=== PATIENT | female | born 1970 | race African-American/Black ===

== ENCOUNTER 2016-12-26 20:58 | Inpatient (IN) | payer SELFPAY ==
[~2016-12-26] VITALS: Ht 171.4 cm; Wt 100.2 kg
[2016-12-26 21:06] VITALS: BP 159/84; PULSE 81; RESP 20; O2SAT 96
[2016-12-26] MEDS ORDERED: [UNRECOGNIZED DRUG - OTHER] PO (21:25)
[2016-12-26] MEDS ORDERED: ONDANSETRON HCL 4 MG/2 ML VIAL IV PUSH ONE (21:30)
[2016-12-26] MEDS ORDERED: MORPHINE SULFATE 4 MG/ML INJ IV PUSH ONE (21:30)
--- NOTE | 2016-12-26 21:31 | PD ---
HPI Chief Complaint: Cardiac Complaint Time Seen by Provider: 21:26 Travel History International Travel<30 days: No Contact w/Intl Traveler<30days: No Traveled to known affect area: No History of Present Illness HPI 46-year-old female that presents to the ED via E back for evaluation of chest pain and headache. Patient developed this chest pain and headache will eating at [employer]. Patient states that she was using some wings as well as a "hurricane" drink and apparently she went to the bathroom and her boyfriend got concerned because she stated the bathroom for a while and when they found her she was complaining of severe chest pain and headache. Ambulance was called and brought her here. Patient reports that he started with the chest pain. Per patient he feels like a pressure. Headache also feels like a pressure. Per patient she's had a history of hypertension in the past. She has no history of heart disease. She denies any stent placement. She has any nausea or vomiting. No abdominal pain. She does have an allergy to shellfish but denies being in contact with any shellfish. She states that the headache feels like a pressure and she was given nitroglycerin which made the headache worse. Per patient she was given aspirin. She states that her pain currently is 10 out of 10 especially on the chest. No recent injury. No abdominal pain. No nausea or vomiting. PFSH Past Medical History Medical History: Denies Significant Hx Social History Alcohol Use: Yes Tobacco Use: No Substance Use: No Allergies-Medications (Allergen,Severity, Reaction): Coded Allergies: PEANUTS (Verified Allergy, Severe, swelling, 12/26/16) Shellfish (Verified Allergy, Severe, swelling, 12/26/16) Reported Meds & Prescriptions Reported Meds & Active Scripts Active Reported [blood press] 1 Tab PO DAILY Review of Systems Except as stated in HPI: all other systems reviewed are Neg Physical Exam Narrative GENERAL: SKIN: Warm and dry. HEAD: Atraumatic. Normocephalic. EYES: Pupils equal and round 4 mm reactive to light and accommodation. No scleral icterus. No injection or drainage. ENT: No nasal bleeding or discharge. Mucous membranes pink and moist. Tongue is midline. No uvula deviation. NECK: Trachea midline. No JVD. CARDIOVASCULAR: Regular rate and rhythm. No murmurs, S3, S4. RESPIRATORY: No accessory muscle use. Clear to auscultation. Breath sounds equal bilaterally. GASTROINTESTINAL: Abdomen soft, non-tender, nondistended. Hepatic and splenic margins not palpable. MUSCULOSKELETAL: Extremities without clubbing, cyanosis, or edema. No obvious deformities. Full range of motion of the upper and lower extremities bilaterally. 2+ pulses bilaterally. NEUROLOGICAL: Awake and alert. No obvious cranial nerve deficits. Motor grossly within normal limits. Five out of 5 muscle strength in the arms and legs. Normal speech. PSYCHIATRIC: Appropriate mood and affect; insight and judgment normal. Data Data Last Documented VS Vital Signs Date Time Temp Pulse Resp B/P Pulse Ox O2 Delivery O2 Flow Rate FiO2 12/26/16 21:49 97.9 94 18 170/100 100 Room Air Orders Electrocardiogram (12/26/16 21:07) Complete Blood Count With Diff (12/26/16 21:07) Basic Metabolic Panel (Bmp) (12/26/16 21:07) Ckmb (Isoenzyme) Profile (12/26/16 21:07) Troponin I (12/26/16 21:07) Prothrombin Time / Inr (Pt) (12/26/16 21:07) Act Partial Throm Time (Ptt) (12/26/16 21:07) Lipase (12/26/16 21:07) Urinalysis - C+S If Indicated (12/26/16 21:07) Magnesium (Mg) (12/26/16 21:07) Thyroid Stimulating Hormone (12/26/16 21:07) Chest, Single Ap (12/26/16 21:07) Ct Brain W/O Iv Contrast(Rout) (12/26/16 21:07) Iv Access Insert/Monitor (12/26/16 21:07) Ecg Monitoring (12/26/16 21:07) Oximetry (12/26/16 21:07) Ed Urine Pregnancytest Poc (12/26/16 21:07) Morphine Inj (Morphine Inj) (12/26/16 21:30) Ondansetron Inj (Zofran Inj) (12/26/16 21:30) Urine Culture (12/26/16 21:30) CKMB (12/26/16 21:10) CKMB% (12/26/16 21:10) Sodium Chlor 0.9% 1000 Ml Inj (Ns 1000 M (12/26/16 22:09) Hepatic Functional Panel (12/26/16 22:09) Labs Laboratory Tests Test 12/26/16 12/26/16 21:10 21:30 White Blood Count 10.8 TH/MM3 Red Blood Count 4.98 MIL/MM3 Hemoglobin 13.6 GM/DL Hematocrit 41.5 % Mean Corpuscular Volume 83.3 FL Mean Corpuscular Hemoglobin 27.3 PG Mean Corpuscular Hemoglobin 32.7 % Concent Red Cell Distribution Width 13.9 % Platelet Count 169 TH/MM3 Mean Platelet Volume 9.9 FL Neutrophils (%) (Auto) 80.1 % Lymphocytes (%) (Auto) 13.6 % Monocytes (%) (Auto) 5.6 % Eosinophils (%) (Auto) 0.3 % Basophils (%) (Auto) 0.4 % Neutrophils # (Auto) 8.7 TH/MM3 Lymphocytes # (Auto) 1.5 TH/MM3 Monocytes # (Auto) 0.6 TH/MM3 Eosinophils # (Auto) 0.0 TH/MM3 Basophils # (Auto) 0.0 TH/MM3 CBC Comment DIFF FINAL Differential Comment Prothrombin Time 11.6 SEC Prothromb Time International 1.0 RATIO Ratio Activated Partial 24.1 SEC Thromboplast Time Sodium Level 139 MEQ/L Potassium Level 3.5 MEQ/L Chloride Level 107 MEQ/L Carbon Dioxide Level 26.5 MEQ/L Anion Gap 6 MEQ/L Blood Urea Nitrogen 15 MG/DL Creatinine 0.84 MG/DL Estimat Glomerular Filtration 88 ML/MIN Rate Random Glucose 98 MG/DL Calcium Level 9.1 MG/DL Magnesium Level 2.1 MG/DL Total Creatine Kinase 206 U/L Creatine Kinase MB 2.5 NG/ML Creatine Kinase MB % 1.2 % Troponin I LESS THAN 0.02 NG/ML Lipase 1498 U/L Thyroid Stimulating Hormone 0.646 uIU/ML 3rd Gen Urine Color LIGHT-YELLOW Urine Turbidity HAZY Urine pH 6.5 Urine Specific [place] 1.008 Urine Protein NEG mg/dL Urine Glucose (UA) NEG mg/dL Urine Ketones NEG mg/dL Urine Occult Blood NEG Urine Nitrite NEG Urine Bilirubin NEG Urine Urobilinogen LESS THAN 2.0 MG/DL Urine Leukocyte Esterase SMALL Urine RBC 1 /hpf Urine WBC 3 /hpf Urine Squamous Epithelial 5 /hpf Cells Urine Bacteria MANY /hpf Urine Mucus FEW /lpf Microscopic Urinalysis Comment CULTURE INDICATED MDM Medical Decision Making Medical Screen Exam Complete: Yes Emergency Medical Condition: Yes Medical Record Reviewed: Yes Interpretation(s) Last Impressions Chest X-Ray 12/26/162106 Signed Impressions: Service Date/Time: Monday, December 26, 2016 21:19 - CONCLUSION: No acute disease. Dhaval Blair MD CBC & BMP Diagram 12/26/16 21:10 EKG shows sinus rhythm with no sign of acute ischemia or arrhythmia read by me and attending. Troponin and CKMB negative Lipase of 1400s Differential Diagnosis Chest pain versus ACS versus anxiety versus pneumothorax versus pneumonia versus headache versus cephalgia versus tension headache versus migraine headache versus ICH Narrative Course 46-year-old female that presents to the ED for evaluation of chest pain and headache. Patient was properly examined and was found to have signs and symptoms of unclear etiology at this time. Definite concerning for ACS. She was initially hypertensive per ambulance and was given nitroglycerin with some relief of the chest pressure but worsening of the headache. Her blood pressure taken down but she apparently climbed second nitroglycerin. She was given aspirin already. Labs and imaging were ordered. Patient was given IV pain medication and Zofran. Labs and imaging showed what appears to be acute pancreatitis. No sign of acute disease. Patient was reassured. Accommodation is for admission for IV fluids and pain relief. Patient agrees with this plan. Patient will be admitted to the hospital. Dr. Malin agrees to admission. Diagnosis Primary Impression: Pancreatitis, acute Qualified Code: K85.20 - Alcohol-induced acute pancreatitis, unspecified complication status Admitting Information Admitting Physician Requests: Admit Alexander Rodriguez Dec 26, 2016 21:31
[2016-12-26 21:39] LABS: AUTOMATED NEUTROPHIL # 8.7 TH/MM3 (1.8-7.7); BASOPHIL % 0.4 % (0.0-2.0); EOSINOPHIL % 0.3 % (0.0-4.0); HEMATOCRIT 41.5 % (35.0-46.0); HEMO FLAGS DIFF FINAL; LYMPH % 13.6 % (9.0-44.0); LYMPHOCYTE # 1.5 TH/MM3 (1.0-4.8); MEAN CELL VOLUME 83.3 FL (80.0-100.0); MEAN CORPUSCULAR HEMOGLOBIN 27.3 PG (27.0-34.0); MEAN CORPUSCULAR HGB CONC 32.7 % (32.0-36.0); MONO % 5.6 % (0.0-8.0); NEUT % 80.1 % (16.0-70.0); PLATELET COUNT 169 TH/MM3 (150-450); RED BLOOD COUNT 4.98 MIL/MM3 (4.00-5.30); RED CELL DISTRIBUTION WIDTH 13.9 % (11.6-17.2); WHITE BLOOD COUNT 10.8 TH/MM3 (4.0-11.0)
--- NOTE | 2016-12-26 21:39 | RADRPT ---
EXAM DATE/TIME: 12/26/2016 21:19 [facility] COMPARISON: No previous studies available for comparison. INDICATIONS : Chest pains and shortness of breath. MEDICAL HISTORY : Asthma. SURGICAL HISTORY : None. ENCOUNTER: Initial ACUITY: 2 days PAIN SCORE: 6/10 LOCATION: Right chest FINDINGS: A single view of the chest demonstrates the lungs to be symmetrically aerated without evidence of mas s, infiltrate or effusion. The cardiomediastinal contours are unremarkable. Osseous structures are intact. CONCLUSION: No acute disease. Dhaval Blair MD on December 26, 2016 at 21:38 Board Certified Radiologist. This report was verified electronically.
[2016-12-26 21:45] LABS: APTT (PATIENT) 24.1 SEC (24.3-30.1); PROTHROMBIN TIME - PATIENT 11.6 SEC (9.8-11.6)
[2016-12-26 21:49] VITALS: BP 170/100; PULSE 94; RESP 18; TEMP 97.9; O2SAT 100
[2016-12-26 21:51] LABS: ANION GAP 6 MEQ/L (5-15); BICARBONATE 26.5 MEQ/L (21.0-32.0); BLOOD UREA NITROGEN 15 MG/DL (7-18); CHLORIDE 107 MEQ/L (98-107); GLOMERULAR FILTRATION RATE 88 ML/MIN (>89); MAGNESIUM 2.1 MG/DL (1.5-2.5); POTASSIUM 3.5 MEQ/L (3.5-5.1); SODIUM (NA) 139 MEQ/L (136-145)
[2016-12-26 21:58] LABS: BACTERIA, URINE MANY /hpf; BLOOD, URINE NEG (NEG); COMMENT (UR) CULTURE INDICATED; CULTURE IF INDICATED CULTURE INDICATED; GLUCOSE,URINE NEG (NEG); KETONE, URINE NEG (NEG); MUCUS URINE FEW /lpf (OCC); NITRITE,URINE NEG (NEG); PH, URINE 6.5 (5.0-8.5); SQUAMOUS EPITHELIAL CELL URINE 5 /hpf (0-5); URINE COLOR LIGHT-YELLOW (YELLW/STRAW)
[2016-12-26 22:02] LABS: CREATINE KINASE 206 U/L (26-192)
[2016-12-26] MEDS ORDERED: SODIUM CHLOR 0.9% 1000 ML INJ 1,000 ML IV SCH (22:09)
[2016-12-26 22:15] LABS: CKMB 2.5 NG/ML (0.5-3.6)
--- NOTE | 2016-12-26 22:43 | RADRPT ---
EXAM DATE/TIME: 12/26/2016 22:33 [facility] COMPARISON: No previous studies available for comparison. INDICATIONS : Cephalgia. RADIATION DOSE: 34.35 CTDIvol (mGy) MEDICAL HISTORY : None SURGICAL HISTORY : None. ENCOUNTER: Initial ACUITY: 1 day PAIN SCALE: 10/10 LOCATION: cranial TECHNIQUE: Multiple contiguous axial images were obtained of the head. Using automated exposure control and adj ustment of the mA and/or kV according to patient size, radiation dose was kept as low as reasonably a chievable to obtain optimal diagnostic quality images. DICOM format image data is available electro nically for review and comparison. FINDINGS: CEREBRUM: The ventricles are normal for age. No evidence of midline shift, mass lesion, hemorrhage or acute in farction. No extra-axial fluid collections are seen. POSTERIOR FOSSA: The cerebellum and brainstem are intact. The 4th ventricle is midline. The cerebellopontine angle i s unremarkable. EXTRACRANIAL: The visualized portion of the orbits is intact. SKULL: The calvaria is intact. No evidence of skull fracture. CONCLUSION: Normal examination. Dhaval Blair MD on December 26, 2016 at 22:41 Board Certified Radiologist. This report was verified electronically.
--- NOTE | 2016-12-26 23:08 | HHI.HP ---
[facility] No Primary Care Physician Admission Diagnosis acute pancreatitis Diagnoses: (1) Pancreatitis Diagnosis: Principal (2) Migraine Diagnosis: Principal (3) HTN (hypertension) Diagnosis: Principal (4) UTI (urinary tract infection) Diagnosis: Principal Travel History International Travel<30 Days: No Contact w/Intl Traveler <30 Da: No Traveled to Known Affected Are: No History of Present Illness This is a 46-year-old female with a PMH of Migraine who was brought to the ER by EMS secondary to complaints of severe headache and epigastric pain starting earlier tonight. Pt states she was at [employer] having dinner w/ , got up to go to bathroom and had acute onset of headache w/ epigastric/chest pain at which time EMS was called. Denies fever, chills, cough or SOB. On arrival, BP 159/84, HR 81, O2 sat 96% on RA, Afebrile. CBC essentially unremarkable except for elevated neutrophil count. Chemistry unremarkable. CPK 206. Troponin negative. Lipase 1498. INR 1.0. UA with small LE, mild bacteriuria. CXR with no acute findings. CT Head negative. Patient currently with +photophobia, intractable migraine which she reports is typical of her previous episodes. S/p analgesics/antiemetics w/ mild improvement. Review of Systems Except as stated in HPI: all other systems reviewed are Neg ROS: 14 point review of systems otherwise negative. Past Family Social History Past Medical History PMH: Migraine Past Surgical History PAST SURGICAL HISTORY: Cholecystectomy, Hysterectomy Allergies: Coded Allergies: PEANUTS (Verified Allergy, Severe, swelling, 12/26/16) Shellfish (Verified Allergy, Severe, swelling, 12/26/16) Family History PAST FAMILY HISTORY: Reviewed. No h/o DM or CAD Social History PAST SOCIAL HISTORY: Occasional alcohol. Negative for tobacco or drugs. Physical Exam Vital Signs Vital Signs Date Time Temp Pulse Resp B/P Pulse Ox O2 Delivery O2 Flow Rate FiO2 12/26/16 21:49 97.9 94 18 170/100 100 Room Air 12/26/16 21:06 81 20 159/84 96 Physical Exam PE: GENERAL: Middle-aged white female in no acute distress, lying in dark room, towel covering her eyes, +photophobia. HEENT: PERRLA, EOMI. No scleral icterus or conjunctival pallor. No lid lag or facial droop. CARDIOVASCULAR: Regular rate and rhythm. No obvious murmurs to auscultation. No chest tenderness to palpation. RESPIRATORY: No obvious rhonchi or wheezing. Clear to auscultation. Breath sounds equal bilaterally. GASTROINTESTINAL: Abdomen soft, mild epigastric tenderness to palpation, nondistended. BS normal. MUSCULOSKELETAL: Extremities without clubbing, cyanosis, or edema. No obvious deformities. NEUROLOGICAL: Awake, alert and oriented x4. No focal neurologic deficits. Moving both upper and lower extremities spontaneously. Laboratory Laboratory Tests Test 12/26/16 12/26/16 21:10 21:30 White Blood Count 10.8 Red Blood Count 4.98 Hemoglobin 13.6 Hematocrit 41.5 Mean Corpuscular Volume 83.3 Mean Corpuscular Hemoglobin 27.3 Mean Corpuscular Hemoglobin 32.7 Concent Red Cell Distribution Width 13.9 Platelet Count 169 Mean Platelet Volume 9.9 Neutrophils (%) (Auto) 80.1 Lymphocytes (%) (Auto) 13.6 Monocytes (%) (Auto) 5.6 Eosinophils (%) (Auto) 0.3 Basophils (%) (Auto) 0.4 Neutrophils # (Auto) 8.7 Lymphocytes # (Auto) 1.5 Monocytes # (Auto) 0.6 Eosinophils # (Auto) 0.0 Basophils # (Auto) 0.0 CBC Comment DIFF FINAL Differential Comment Prothrombin Time 11.6 Prothromb Time International 1.0 Ratio Activated Partial 24.1 Thromboplast Time Sodium Level 139 Potassium Level 3.5 Chloride Level 107 Carbon Dioxide Level 26.5 Anion Gap 6 Blood Urea Nitrogen 15 Creatinine 0.84 Estimat Glomerular Filtration 88 Rate Random Glucose 98 Calcium Level 9.1 Magnesium Level 2.1 Total Creatine Kinase 206 Creatine Kinase MB 2.5 Creatine Kinase MB % 1.2 Troponin I LESS THAN 0.02 Lipase 1498 Thyroid Stimulating Hormone 0.646 3rd Gen Urine Color LIGHT-YELLOW Urine Turbidity HAZY Urine pH 6.5 Urine Specific [place] 1.008 Urine Protein NEG Urine Glucose (UA) NEG Urine Ketones NEG Urine Occult Blood NEG Urine Nitrite NEG Urine Bilirubin NEG Urine Urobilinogen LESS THAN 2.0 Urine Leukocyte Esterase SMALL Urine RBC 1 Urine WBC 3 Urine Squamous Epithelial 5 Cells Urine Bacteria MANY Urine Mucus FEW Microscopic Urinalysis Comment CULTURE INDICATED Date/Time Procedure Status Source Growth 12/26/16 21:30 Urine Culture Worksheet Urine Random Urine Pending Result Diagram: 12/26/16210912/26/162109 Assessment and Plan Problem List: (1) Pancreatitis ICD Code: K85.90 Status: Acute (2) Migraine ICD Code: G43.909 Status: Acute (3) HTN (hypertension) ICD Code: I10 Status: Acute (4) UTI (urinary tract infection) ICD Code: N39.0 Status: Acute Assessment and Plan A/P: 1. Pancreatitis: Acute. Lipase 1498, no h/o Pancreatitis in the past. LFTs normal. Protonix IV, analgesics/antiemetics as needed, Clear Liquid, advance diet as tolerated. IVF for hydration. 2. Migraine: h/o Migraine, initially Tension Headache earlier today, now progressed to Migraine. Compazine/Benadryl prn. CT Head w/ no acute findings, images reviewed by me. 3. HTN: BP 150-160's on arrival, likely compounded by pain complaints, no h/o HTN. Optimize pain control, monitor BP, antihypertensives as needed. 4. UTI: U/a w/ small LE, mild bacteriuria, Cipro IV, IVF for hydration. 5. DVT Prophylaxis: SCD/Teds. 6. Social work for d/c planning as needed. 7. Case discussed w/ ER physician at length. Physician Certification 2 Midnight Certification Type: Admission for Inpatient Services Order for Inpatient Services The services are ordered in accordance with Medicare regulations or non- Medicare payer requirements, as applicable. In the case of services not specified as inpatient-only, they are appropriately provided as inpatient services in accordance with the 2-midnight benchmark. Estimated LOS (days): 2 days is the estimated time the patient will need to remain in the hospital, assuming treatment plan goals are met and no additional complications. Post-Hospital Plan: Not yet determined Blanca Malin MD Dec 26, 2016 23:08
[2016-12-26] MEDS ORDERED: ONDANSETRON HCL 4 MG/2 ML VIAL IVP PRN (23:15)
[2016-12-26] MEDS ORDERED: LACTULOSE SYRUP 20 GM/30 ML CUP PO PRN (23:15)
[2016-12-26] MEDS ORDERED: BISACODYL 10 MG SUPP RECTAL PRN (23:15)
[2016-12-26] MEDS ORDERED: diphenhydrAMINE HCL 50 MG/ML VIAL IV PUSH PRN (23:15)
[2016-12-26] MEDS ORDERED: PROCHLORPERAZINE INJ 10 MG/2 ML VIAL IV PUSH PRN (23:15)
[2016-12-26] MEDS ORDERED: SODIUM CHLORIDE 0.9% FLUSH 10 ML FLUSH IV FLUSH PRN (23:15)
[2016-12-26] MEDS ORDERED: MAGNESIUM HYDROXIDE SUSP 30 ML CUP PO PRN (23:15)
[2016-12-26] MEDS ORDERED: SENNOSIDES 8.6 MG TAB PO PRN (23:15)
[2016-12-26] MEDS ORDERED: ACETAMINOPHEN 325 MG TAB PO PRN (23:15)
[2016-12-26] MEDS: SODIUM CHLOR 0.9% 1000 ML INJ 1,000 ML IV SCH (23:37)
[2016-12-26 23:46] VITALS: BP 166/79; PULSE 89; RESP 16; O2SAT 96
[2016-12-27] MEDS ORDERED: PANTOPRAZOLE SODIUM 40 MG VIAL IV PUSH SCH
[2016-12-27 00:10] VITALS: BP 165/93; PULSE 82; RESP 17; TEMP 97.3; O2SAT 96
[2016-12-27] MEDS: ACETAMINOPHEN/HYDROcodone 325 MG/5 MG TAB PO PRN ×4 (00:37→20:39)
[2016-12-27 01:11] LABS: INDIRECT BILIRUBIN 0.4 MG/DL (0.0-0.8); TOTAL BILIRUBIN ADULT 0.5 MG/DL (0.2-1.0)
[2016-12-27] MEDS ORDERED: CIPROFLOXACIN 400 MG PREMIX 200 ML IV SCH (01:25)
[2016-12-27 03:30] VITALS: BP 122/63; PULSE 64; RESP 16; TEMP 97; O2SAT 99
[2016-12-27 07:46] LABS: AUTOMATED NEUTROPHIL # 5.3 TH/MM3 (1.8-7.7); BASOPHIL % 0.4 % (0.0-2.0); EOSINOPHIL # 0.2 TH/MM3 (0-0.4); EOSINOPHIL % 1.9 % (0.0-4.0); HEMATOCRIT 39.7 % (35.0-46.0); HEMO FLAGS DIFF FINAL; LYMPH % 36.1 % (9.0-44.0); LYMPHOCYTE # 3.5 TH/MM3 (1.0-4.8); MEAN CELL VOLUME 83.5 FL (80.0-100.0); MEAN CORPUSCULAR HEMOGLOBIN 27.6 PG (27.0-34.0); MEAN CORPUSCULAR HGB CONC 33.1 % (32.0-36.0); MONO % 7.2 % (0.0-8.0); NEUT % 54.4 % (16.0-70.0); PLATELET COUNT 170 TH/MM3 (150-450); RED BLOOD COUNT 4.76 MIL/MM3 (4.00-5.30); RED CELL DISTRIBUTION WIDTH 14.2 % (11.6-17.2); WHITE BLOOD COUNT 9.7 TH/MM3 (4.0-11.0)
[2016-12-27 08:00] VITALS: BP 134/78; PULSE 69; RESP 18; TEMP 97.2; O2SAT 100
[2016-12-27 08:46] LABS: ALKALINE PHOSPHATASE 55 U/L (45-117); ALT (GPT) 50 U/L (10-53); ANION GAP 6 MEQ/L (5-15); AST (GOT) 45 U/L (15-37); BICARBONATE 28.5 MEQ/L (21.0-32.0); BLOOD UREA NITROGEN 14 MG/DL (7-18); CHLORIDE 111 MEQ/L (98-107); GLOMERULAR FILTRATION RATE 95 ML/MIN (>89); POTASSIUM 3.5 MEQ/L (3.5-5.1); SODIUM (NA) 145 MEQ/L (136-145); TOTAL BILIRUBIN ADULT 0.4 MG/DL (0.2-1.0)
[2016-12-27] MEDS: DOCUSATE SODIUM 50 MG/SENNA 8.6 MG TAB PO SCH ×2 (09:59→20:36)
[2016-12-27] MEDS: SODIUM CHLORIDE 0.9% FLUSH 10 ML FLUSH IV FLUSH SCH ×2 (09:59→20:38)
[2016-12-27] MEDS: SODIUM CHLOR 0.9% 1000 ML INJ 1,000 ML IV SCH (09:59)
[2016-12-27] MEDS ORDERED: cloNIDine HCL 0.1 MG TAB PO PRN (11:15)
[2016-12-27] MEDS ORDERED: ENALAPRILAT 1.25 MG/ML VIAL IV PRN (11:15)
[2016-12-27] MEDS ORDERED: POTASSIUM CHLORIDE 20 MEQ CONTROLLED RELEASE TAB PO ONE (11:15)
[2016-12-27] MEDS ORDERED: CIPR250T52 PO (11:20)
[2016-12-27] MEDS ORDERED: SENN1TAB PO (11:20)
[2016-12-27] MEDS ORDERED: HYDR-3516 PO (11:20)
[2016-12-27] MEDS ORDERED: PANT40TA3 PO (11:20)
--- NOTE | 2016-12-27 11:20 | HHI.DCPOC ---
Discharge Care Plan Diagnosis: (1) Pancreatitis, acute (2) Migraine (3) HTN (hypertension) Your Health Problems Are: Difficulty with ADL Exercise Tolerance Goals to Promote Your Health * To prevent worsening of your condition and complications * To maintain your health at the optimal level Directions to Meet Your Goals Take your medications as prescribed Follow your dietary instruction Follow activity as directed Keep your appointments as scheduled Take your immunizations and boosters as scheduled If your symptoms worsen call your PCP, if no PCP go to Urgent Care Center or Emergency Room Smoking is Dangerous to Your Health. Avoid second hand smoke Call the 24-hour hour crisis hotline for domestic abuse at Roderick Downs MD Dec 27, 2016 11:20
--- NOTE | 2016-12-27 11:25 | HHI.PR ---
Subjective Remarks Follow-up pancreatitis and migraine. Improving pain scale of 4 out of 10. States she had alcohol prior to onset of pain. History of gallstones status post cholecystectomy. Improved headache. Discussed with RN Objective Vitals Vital Signs Date Time Temp Pulse Resp B/P Pulse Ox O2 Delivery O2 Flow Rate FiO2 12/27/16 08:00 97.2 69 18 134/78 100 12/27/16 03:30 97.0 64 16 122/63 99 12/27/16 00:10 97.3 82 17 165/93 96 12/26/16 23:46 89 16 166/79 96 Room Air 12/26/16 21:49 97.9 94 18 170/100 100 Room Air 12/26/16 21:06 81 20 159/84 96 I/O 12/26/16 12/26/16 12/26/16 12/27/16 12/27/16 12/27/16 07:00 15:00 23:00 07:00 15:00 23:00 Intake Total 240 ml Balance 240 ml Intake Oral 240 ml # Voids 2 # Bowel Movements 0 Result Diagram: 12/27/1662212/27/16622 Imaging Last Impressions Head CT 12/26/162106 Signed Impressions: Service Date/Time: Monday, December 26, 2016 22:33 - CONCLUSION: Normal examination. Dhaval Blair MD Chest X-Ray 12/26/162106 Signed Impressions: Service Date/Time: Monday, December 26, 2016 21:19 - CONCLUSION: No acute disease. Dhaval Blair MD Objective Remarks GENERAL: Well-developed, obese in no distress SKIN: Warm and dry. HEAD: Atraumatic. Normocephalic. EYES: Pupils equal and round. No scleral icterus. No injection or drainage. ENT: No nasal bleeding or discharge. Mucous membranes pink and moist. NECK: Trachea midline. No JVD. CARDIOVASCULAR: Regular rate and rhythm. RESPIRATORY: No accessory muscle use. Clear to auscultation. Breath sounds equal bilaterally. GASTROINTESTINAL: Abdomen soft, tender epigastric, nondistended. MUSCULOSKELETAL: Extremities without clubbing, cyanosis, or edema. No obvious deformities. NEUROLOGICAL: Awake and alert. No obvious cranial nerve deficits. Motor grossly within normal limits. Five out of 5 muscle strength in the arms and legs. Normal speech. PSYCHIATRIC: Appropriate mood and affect; insight and judgment normal. Procedures none A/P Problem List: (1) Pancreatitis ICD Code: K85.90 Status: Acute (2) Migraine ICD Code: G43.909 Status: Acute (3) HTN (hypertension) ICD Code: I10 Status: Chronic (4) UTI (urinary tract infection) ICD Code: N39.0 Status: Acute Assessment and Plan 1. Pancreatitis: Acute. Lipase 1498, no h/o Pancreatitis in the past. AST slightly up history of gallstones status post cholecystectomy. Improving lipase down to within normal limits. Advance diet to full, continue pain management with Lortab and morphine, GI prophylaxis with Protonix, analgesics/ antiemetics as needed and IVF for hydration. This is likely alcoholic pancreatitis obtain TGL and sonogram 2. Migraine: h/o Migraine, initially Tension Headache, now progressed to Migraine. Compazine/Benadryl prn. CT Head w/ no acute findings, images reviewed by me. 3. HTN: BP 150-160's on arrival, likely compounded by pain complaints, no h/o HTN. Optimize pain control, monitor BP, antihypertensives as needed. Patient has not been taking her BP medications for sometime now. 4. UTI: U/a w/ small LE, mild bacteriuria, Cipro IV to by mouth, IVF for hydration. 5. DVT Prophylaxis: SCD/Teds. Discharge Planning Possible discharge in the morning Roderick Downs MD Dec 27, 2016 11:25
[2016-12-27 11:50] VITALS: BP 186/99; PULSE 74; RESP 18; TEMP 97.3; O2SAT 99
[2016-12-27] MEDS: MORPHINE SULFATE 4 MG/ML INJ IV PRN ×2 (12:45→16:52)
[2016-12-27] MEDS: PANTOPRAZOLE SOD 40 MG DELAYED RELEASE TAB PO SCH (12:45)
[2016-12-27] MEDS: CIPROFLOXACIN 250 MG TAB PO SCH ×2 (12:46→20:35)
[2016-12-27] MEDS: NS + KCL 20 MEQ INJ 1,000 ML IV SCH ×2 (12:47→20:38)
--- NOTE | 2016-12-27 14:17 | EKG ---
Date Performed: 12/26/2016 Time Performed: 21:11:05 PTAGE: 46 years EKG: Sinus rhythm MODERATE VOLTAGE CRITERIA FOR LVH, CONSIDER NORMAL VARIANT NONSPECIFIC T-WAVE ABNORMALITY BORDERLINE ECG NO PREVIOUS TRACING DOCTOR: Dwight Ferris Interpretating Date/Time 12/27/2016 14:14:19
[2016-12-27 15:05] VITALS: BP 137/83; PULSE 60; RESP 18; TEMP 97.3; O2SAT 100
[2016-12-27 19:00] VITALS: BP 152/93; PULSE 66; RESP 16; TEMP 98.2; O2SAT 99
--- NOTE | 2016-12-27 22:19 | RADRPT ---
EXAM DATE/TIME: 12/27/2016 21:06 [facility] COMPARISON: No previous studies available for comparison. INDICATIONS : Pancreatitis. MEDICAL HISTORY : Hypertension. Asthma. Migraines. UTI. SURGICAL HISTORY : Cholecystectomy. Hysterectomy. ENCOUNTER: Initial ACUITY: 1 day PAIN SCORE: 6/10 LOCATION: Right upper quadrant MEASUREMENTS: LIVER: 13.2 cm length COMMON DUCT: 5 mm RIGHT KIDNEY: 9.7 x 4.8 x 4.8 cm FINDINGS: LIVER: Normal echotexture without focal lesion or ductal dilatation. Hepatopedal flow is seen in the portal vein. COMMON DUCT: No intraluminal mass or stone visualized. GALLBLADDER: Cholecystectomy. PANCREAS: Not well seen. CONCLUSION: 1. No dilation of the common bile duct. 2. No focal lesions in liver. 3. Pancreas is not well-seen. Misael Webster MD on December 27, 2016 at 22:15 Board Certified Radiologist. This report was verified electronically.
[2016-12-28] VITALS: BP 158/92; PULSE 84; RESP 17; TEMP 96.4; O2SAT 99
[2016-12-28] MEDS: NS + KCL 20 MEQ INJ 1,000 ML IV SCH ×2 (01:34→19:37)
[2016-12-28] MEDS: ACETAMINOPHEN/HYDROcodone 325 MG/5 MG TAB PO PRN ×4 (01:39→19:31)
[2016-12-28 04:00] VITALS: BP 125/69; PULSE 70; RESP 16; TEMP 97; O2SAT 99
[2016-12-28 04:53] LABS: AUTOMATED NEUTROPHIL # 3.9 TH/MM3 (1.8-7.7); BASOPHIL % 0.6 % (0.0-2.0); EOSINOPHIL # 0.1 TH/MM3 (0-0.4); EOSINOPHIL % 2.2 % (0.0-4.0); HEMATOCRIT 39.6 % (35.0-46.0); HEMO FLAGS DIFF FINAL; LYMPH % 27.9 % (9.0-44.0); LYMPHOCYTE # 1.8 TH/MM3 (1.0-4.8); MEAN CELL VOLUME 83.2 FL (80.0-100.0); MEAN CORPUSCULAR HEMOGLOBIN 27.7 PG (27.0-34.0); MEAN CORPUSCULAR HGB CONC 33.3 % (32.0-36.0); NEUT % 61.3 % (16.0-70.0); PLATELET COUNT 158 TH/MM3 (150-450); RED BLOOD COUNT 4.76 MIL/MM3 (4.00-5.30); RED CELL DISTRIBUTION WIDTH 14.1 % (11.6-17.2); WHITE BLOOD COUNT 6.4 TH/MM3 (4.0-11.0)
[2016-12-28 05:34] LABS: ALKALINE PHOSPHATASE 71 U/L (45-117); ALT (GPT) 284 U/L (10-53); ANION GAP 6 MEQ/L (5-15); AST (GOT) 264 U/L (15-37); BICARBONATE 29.2 MEQ/L (21.0-32.0); BLOOD UREA NITROGEN 7 MG/DL (7-18); CHLORIDE 110 MEQ/L (98-107); GLOMERULAR FILTRATION RATE 104 ML/MIN (>89); MAGNESIUM 1.8 MG/DL (1.5-2.5); POTASSIUM 3.6 MEQ/L (3.5-5.1); SODIUM (NA) 145 MEQ/L (136-145)
[2016-12-28 07:57] VITALS: BP 135/91; PULSE 73; RESP 18; TEMP 96.6; O2SAT 99
[2016-12-28] MEDS: PANTOPRAZOLE SOD 40 MG DELAYED RELEASE TAB PO SCH (08:19)
[2016-12-28] MEDS: CIPROFLOXACIN 250 MG TAB PO SCH (08:19)
[2016-12-28] MEDS: DOCUSATE SODIUM 50 MG/SENNA 8.6 MG TAB PO SCH ×2 (08:25→19:32)
[2016-12-28] MEDS: SODIUM CHLORIDE 0.9% FLUSH 10 ML FLUSH IV FLUSH SCH ×2 (08:25→19:36)
--- NOTE | 2016-12-28 08:55 | HHI.PR ---
Subjective Remarks Follow-up pancreatitis and transaminitis. Pain 4/10 tolerating diet. No risk factors for hepatitis Objective Vitals Vital Signs Date Time Temp Pulse Resp B/P Pulse Ox O2 Delivery O2 Flow Rate FiO2 12/28/16 07:57 96.6 73 18 135/91 99 12/28/16 07:05 Room Air 12/28/16 04:00 97.0 70 16 125/69 99 12/28/16 00:00 96.4 84 17 158/92 99 12/27/16 19:00 98.2 66 16 152/93 99 12/27/16 15:05 97.3 60 18 137/83 100 12/27/16 11:50 97.3 74 18 186/99 99 I/O 12/27/16 12/27/16 12/27/16 12/28/16 12/28/16 12/28/16 07:00 15:00 23:00 07:00 15:00 23:00 Intake Total 240 ml 960 ml 480 ml 1379 ml Balance 240 ml 960 ml 480 ml 1379 ml Intake Oral 240 ml 960 ml 480 ml 248 ml IV Total 1131 ml # Voids 2 1 3 2 # Bowel Movements 0 0 0 0 Result Diagram: 12/28/16 0314 12/28/16 0314 Imaging Last Impressions Pancreas Ultrasound 12/27/16 0000 Signed Impressions: Service Date/Time: Tuesday, December 27, 2016 21:06 - CONCLUSION: 1. No dilation of the common bile duct. 2. No focal lesions in liver. 3. Pancreas is not well-seen. Misael Webster MD Head CT 12/26/162106 Signed Impressions: Service Date/Time: Monday, December 26, 2016 22:33 - CONCLUSION: Normal examination. Dhaval Blair MD Chest X-Ray 12/26/162106 Signed Impressions: Service Date/Time: Monday, December 26, 2016 21:19 - CONCLUSION: No acute disease. Dhaval Blair MD Objective Remarks GENERAL: Well-developed, obese in no distress SKIN: Warm and dry. HEAD: Atraumatic. Normocephalic. EYES: Pupils equal and round. No scleral icterus. No injection or drainage. ENT: No nasal bleeding or discharge. Mucous membranes pink and moist. NECK: Trachea midline. No JVD. CARDIOVASCULAR: Regular rate and rhythm. RESPIRATORY: No accessory muscle use. Clear to auscultation. Breath sounds equal bilaterally. GASTROINTESTINAL: Abdomen soft, tender epigastric and RUQ, nondistended. MUSCULOSKELETAL: Extremities without clubbing, cyanosis, or edema. No obvious deformities. NEUROLOGICAL: Awake and alert. No obvious cranial nerve deficits. Motor grossly within normal limits. Five out of 5 muscle strength in the arms and legs. Normal speech. PSYCHIATRIC: Appropriate mood and affect; insight and judgment normal. Procedures none A/P Problem List: (1) Pancreatitis ICD Code: K85.90 Status: Acute (2) Migraine ICD Code: G43.909 Status: Chronic (3) HTN (hypertension) ICD Code: I10 Status: Chronic (4) UTI (urinary tract infection) ICD Code: N39.0 Status: Acute Assessment and Plan 1. Pancreatitis: Acute. Lipase 1498, no h/o Pancreatitis in the past. AST slightly up history of gallstones status post cholecystectomy. Improving pain pending repeat lipase. Advance diet to full, continue pain management with Lortab and morphine, GI prophylaxis with Protonix, analgesics/antiemetics as needed and IVF for hydration. This is likely alcoholic pancreatitis. Unremarkable TGL and sonogram 2. Transaminitis. Increasing liver function test. Sonogram unremarkable status post cholecystectomy. Obtain hepatitis profile and Tylenol level. Repeat CMP in the morning. Consult GI evaluate for CBD stone 3. Migraine: h/o Migraine, initially Tension Headache, now progressed to Migraine. Compazine/Benadryl prn. CT Head w/ no acute findings, images reviewed by me. 4. HTN: BP 150-160's on arrival, likely compounded by pain complaints, no h/o HTN. Optimize pain control, monitor BP, antihypertensives as needed. Patient has not been taking her BP medications for sometime now. 5. Abnormal urinalysis. Urine culture with contaminants. Discontinue ciprofloxacin. 6. DVT Prophylaxis: SCD/Teds. Discharge Planning Not stable for discharge Roderick Downs MD Dec 28, 2016 08:55
[2016-12-28 09:56] LABS: ACETAMINOPHEN 3.1 MCG/ML (10.0-30.0)
[2016-12-28 11:55] VITALS: BP 142/96; PULSE 69; RESP 18; TEMP 96.7; O2SAT 98
[2016-12-28 15:55] VITALS: BP 140/86; PULSE 59; RESP 18; TEMP 98.1; O2SAT 98
--- NOTE | 2016-12-28 15:55 | PD.CONS ---
HPI History of Present Illness This is a 46 year old female who presented to the emergency room for evaluation of abdominal pain and was found to have an elevated lipase at 2074. She denies any history of pancreatitis. She had her gallbladder removed about 10-15 years ago, but states that she did have stones at that time. She denies any family history of pancreatitis. She denies any new medications although she did start a new herbal supplement about 2 months ago (beet powder for high blood pressure) . She occasionally drinks alcohol, but only on rare occasions. She started having epigastric discomfort/pressure/indigestion last Tuesday. She reports that this was intermittent and that she had some associated bloating at that time as well. It was very mild and states she was able to go about her daily activities. Tuesday she [place] the day at the beach and went to [employer] for dinner, where she had a chicken dinner. She did have one alcoholic beverage , but states that this is very rare for her. Before she left the restaurant, she started having severe epigastric pain that she describes as sharp and constant with no radiation to the back but some radiation to her chest. She had associated nausea. She went to the restroom to try to move her bowels but did not have a bowel movement. She became diaphoretic and she was afraid she was having a heart attack and therefore came to the ER for further evaluation. She was evaluated with head CT, chest x-ray. She also had a pancreatic ultrasound [facility] (12/27/16) and this revealed no dilation of the common bile duct. The common bile duct was 5 mm. No focal lesions in the liver. Pancreas is not well seen. On admission her LFTs were total bilirubin 0.5, AST 45, 40, alkaline phosphatase 55. Today these went up to total bilirubin 1.0, AST 264, ALT 284, alkaline phosphatase 71. Hepatitis profile is pending. Of note the patient did not eat any shellfish. GI has been consulted for further evaluation and treatment. Of note she does have a remote history of peptic ulcer disease about 20 years ago. [facility] Past Medical History Migraine History of hypertension, off meds for several years. He takes beet powder at home Remote history of peptic ulcer disease History of cholelithiasis Past Surgical History EGD Cholecystectomy Hysterectomy Coded Allergies: PEANUTS (Verified Allergy, Severe, swelling, 12/26/16) Shellfish (Verified Allergy, Severe, swelling, 12/26/16) Medications Allergies Coded Allergies Type Severity Reaction Last Updated Verified PEANUTS Allergy Severe swelling 12/26/16 Yes Shellfish Allergy Severe swelling 12/26/16 Yes Active Scripts Medications Dose Route/Sig Days Date Category Cipro (Ciprofloxacin HCl) 250 Mg Tab 250 Mg PO BID 12/27/16 Rx Senna Plus 8.6-50 mg (Sennosides-Docusate Sodium) 1 Tab Tab 1 Tab PO BID 12/27/16 Rx Pantoprazole (Pantoprazole Sodium) 40 Mg Tab 40 Mg PO DAILY 12/27/16 Rx Hydrocodone-Acetaminophen 5-325 mg Tab 1 Tab PO Q6HR PRN 12/27/16 Rx [blood press] 1 Tab PO DAILY 12/26/16 Reported Cipro as listed on her home medications but patient denies taking this Family History No family h/o DM or CAD. No family hx of pancreatitis. Social History Occasional alcohol. Negative for tobacco or drugs. Review of Systems Constitutional: DENIES: Fatigue, Fever, Weight loss, Chills, Change in appetite Respiratory: DENIES: Cough Cardiovascular: COMPLAINS OF: Chest pain Gastrointestinal: COMPLAINS OF: Abdominal pain, Nausea, Swelling of Abdomen, Heartburn, DENIES: Black stools, Bloody stools, Constipation, Diarrhea, Anorexia, Hematemesis Musculoskeletal: DENIES: Back pain Integumentary: DENIES: Jaundice Neurologic: COMPLAINS OF: Headache Psychiatric: DENIES: Confusion GI Exam Vitals I&O Vital Signs Date Time Temp Pulse Resp B/P Pulse Ox O2 Delivery O2 Flow Rate FiO2 12/28/16 11:55 96.7 69 18 142/96 98 12/28/16 07:57 96.6 73 18 135/91 99 12/28/16 07:05 Room Air 12/28/16 04:00 97.0 70 16 125/69 99 12/28/16 00:00 96.4 84 17 158/92 99 12/27/16 19:00 98.2 66 16 152/93 99 I/O 12/27/16 12/27/16 12/27/16 12/28/16 12/28/16 12/28/16 07:00 15:00 23:00 07:00 15:00 23:00 Intake Total 240 ml 960 ml 480 ml 1379 ml Balance 240 ml 960 ml 480 ml 1379 ml Intake Oral 240 ml 960 ml 480 ml 248 ml IV Total 1131 ml # Voids 2 1 3 2 # Bowel Movements 0 0 0 0 Imaging Last Impressions Pancreas Ultrasound 12/27/16 0000 Signed Impressions: Service Date/Time: Tuesday, December 27, 2016 21:06 - CONCLUSION: 1. No dilation of the common bile duct. 2. No focal lesions in liver. 3. Pancreas is not well-seen. Misael Webster MD Head CT 12/26/162106 Signed Impressions: Service Date/Time: Monday, December 26, 2016 22:33 - CONCLUSION: Normal examination. Dhaval Blair MD Chest X-Ray 12/26/162106 Signed Impressions: Service Date/Time: Monday, December 26, 2016 21:19 - CONCLUSION: No acute disease. Dhaval Blair MD Laboratory Test 12/28/16 03:14 White Blood Count 6.4 TH/MM3 Red Blood Count 4.76 MIL/MM3 Hemoglobin 13.2 GM/DL Hematocrit 39.6 % Mean Corpuscular Volume 83.2 FL Mean Corpuscular Hemoglobin 27.7 PG Mean Corpuscular Hemoglobin 33.3 % Concent Red Cell Distribution Width 14.1 % Platelet Count 158 TH/MM3 Mean Platelet Volume 10.4 FL Neutrophils (%) (Auto) 61.3 % Lymphocytes (%) (Auto) 27.9 % Monocytes (%) (Auto) 8.0 % Eosinophils (%) (Auto) 2.2 % Basophils (%) (Auto) 0.6 % Neutrophils # (Auto) 3.9 TH/MM3 Lymphocytes # (Auto) 1.8 TH/MM3 Monocytes # (Auto) 0.5 TH/MM3 Eosinophils # (Auto) 0.1 TH/MM3 Basophils # (Auto) 0.0 TH/MM3 CBC Comment DIFF FINAL Differential Comment Sodium Level 145 MEQ/L Potassium Level 3.6 MEQ/L Chloride Level 110 MEQ/L Carbon Dioxide Level 29.2 MEQ/L Anion Gap 6 MEQ/L Blood Urea Nitrogen 7 MG/DL Creatinine 0.73 MG/DL Estimat Glomerular Filtration 104 ML/MIN Rate Random Glucose 64 MG/DL Calcium Level 8.4 MG/DL Magnesium Level 1.8 MG/DL Total Bilirubin 1.0 MG/DL Aspartate Amino Transf 264 U/L (AST/SGOT) Alanine Aminotransferase 284 U/L (ALT/SGPT) Alkaline Phosphatase 71 U/L Total Protein 6.5 GM/DL Albumin 3.1 GM/DL Lipase 2075 U/L Acetaminophen Level 3.1 MCG/ML Date/Time Procedure Status Source Growth 12/26/16 21:30 Urine Culture - Final Complete Urine Random Urine 50-100,000 CFU/ML MIXED GRAM POSITIVE... Physical Examination HEENT: Normocephalic; atraumatic; no jaundice. CHEST: CTA CARDIAC: RRR ABDOMEN: Soft, nondistended, epigastric tenderness; no hepatosplenomegaly; bowel sounds are present in all four quadrants. EXTREMITIES: No clubbing, cyanosis, or edema. SKIN: Normal; no rash; no jaundice. AUDITOR SUPERVISOR: No focal deficits; alert and oriented times three. Assessment and Plan Plan ASSESSMENT: - Abdominal pain with elevated lipase and LFT's. Started having epigastric discomfort/bloating Tuesday, developed severe epigastric pain radiating to chest Tuesday night after eating out at [place]. Of note, she did not have shellfish. Pancreatic ultrasound [facility] (12/27/16) and this revealed no dilation of the common bile duct. The common bile duct was 5 mm. No focal lesions in the liver. Pancreas is not well seen. On admission her LFTs were total bilirubin 0.5, AST 45, 40, alkaline phosphatase 55. Today these went up to total bilirubin 1.0, AST 264, ALT 284, alkaline phosphatase 71. Hepatitis profile is pending. No prior history of pancreatitis. S/P cholecystectomy for symptomatic cholelithiasis. Denies new medications other than starting Beet Powder for hx of elevated b/p 2 months ago. No family history of pancreatitis. Rare alcohol use- did have one drink Tuesday night, but usually does not drink. Will get MRCP to evaluate for filling defects/stones in CBD and to get better imaging of the pancreas. Liquid diet. Monitor labs. PPI - Elevated LFTs. Worsening. Hepatitis panel pending. Does not appear to be obstructive although pt with sudden worsening. Will get MRCP to evaluate for stones/pancreas. PLAN: - Liquid diet - NPO after MN - MRCP - PPI - LFT, Lipase in am - Await hepatitis profile - Supportive care - Further recommendations to follow based on results of above - Pt seen and examined by Dr. Davis and this note is written on his behalf Shanel Ivory Dec 28, 2016 15:54
[2016-12-28 19:45] VITALS: BP 145/89; PULSE 69; RESP 16; TEMP 98.8; O2SAT 98
[2016-12-29] VITALS: BP 112/77; PULSE 61; RESP 16; TEMP 97; O2SAT 98
[2016-12-29] MEDS: ACETAMINOPHEN/HYDROcodone 325 MG/5 MG TAB PO PRN ×2 (00:11→17:05)
[2016-12-29 04:00] VITALS: BP 126/58; PULSE 61; RESP 17; TEMP 96.6; O2SAT 99
[2016-12-29] MEDS: NS + KCL 20 MEQ INJ 1,000 ML IV SCH ×3 (04:04→20:59)
[2016-12-29 07:55] VITALS: BP 139/80; PULSE 63; RESP 16; TEMP 96.4; O2SAT 100
--- NOTE | 2016-12-29 08:34 | HHI.PR ---
Subjective Remarks Follow-up pancreatitis and transaminitis. Epigastric pain 5 out of 10 currently nothing by mouth for MRCP. Discussed with RN Objective Vitals Vital Signs Date Time Temp Pulse Resp B/P Pulse Ox O2 Delivery O2 Flow Rate FiO2 12/29/16 07:55 96.4 63 16 139/80 100 12/29/16 04:00 96.6 61 17 126/58 99 12/29/16 00:00 97.0 61 16 112/77 98 12/28/16 19:45 98.8 69 16 145/89 98 12/28/16 15:55 98.1 59 18 140/86 98 12/28/16 11:55 96.7 69 18 142/96 98 I/O 12/28/16 12/28/16 12/28/16 12/29/16 12/29/16 12/29/16 07:00 15:00 23:00 07:00 15:00 23:00 Intake Total 1379 ml 960 ml 480 ml 260 ml Balance 1379 ml 960 ml 480 ml 260 ml Intake Oral 248 ml 960 ml 480 ml 0 ml IV Total 1131 ml 260 ml # Voids 2 2 2 2 # Bowel Movements 0 0 0 0 Result Diagram: 12/28/16 0314 12/28/16 0314 Imaging Last Impressions Pancreas Ultrasound 12/27/16 0000 Signed Impressions: Service Date/Time: Tuesday, December 27, 2016 21:06 - CONCLUSION: 1. No dilation of the common bile duct. 2. No focal lesions in liver. 3. Pancreas is not well-seen. Misael Webster MD Head CT 12/26/162106 Signed Impressions: Service Date/Time: Monday, December 26, 2016 22:33 - CONCLUSION: Normal examination. Dhaval Blair MD Chest X-Ray 12/26/162106 Signed Impressions: Service Date/Time: Monday, December 26, 2016 21:19 - CONCLUSION: No acute disease. Dhaval Blair MD Objective Remarks GENERAL: Well-developed, obese in no distress SKIN: Warm and dry. HEAD: Atraumatic. Normocephalic. EYES: Pupils equal and round. No scleral icterus. No injection or drainage. ENT: No nasal bleeding or discharge. Mucous membranes pink and moist. NECK: Trachea midline. No JVD. CARDIOVASCULAR: Regular rate and rhythm. RESPIRATORY: No accessory muscle use. Clear to auscultation. Breath sounds equal bilaterally. GASTROINTESTINAL: Abdomen soft, tender epigastric , nondistended. MUSCULOSKELETAL: Extremities without clubbing, cyanosis, or edema. No obvious deformities. NEUROLOGICAL: Awake and alert. No obvious cranial nerve deficits. Motor grossly within normal limits. Five out of 5 muscle strength in the arms and legs. Normal speech. PSYCHIATRIC: Appropriate mood and affect; insight and judgment normal. Procedures none A/P Problem List: (1) Pancreatitis ICD Code: K85.90 Status: Acute (2) Migraine ICD Code: G43.909 Status: Chronic (3) HTN (hypertension) ICD Code: I10 Status: Chronic Assessment and Plan 1. Pancreatitis: Acute. Lipase 1498, no h/o Pancreatitis in the past. AST slightly up history of gallstones status post cholecystectomy. Improving pain pending repeat lipase. Advance diet to full, continue pain management with Lortab and morphine, GI prophylaxis with Protonix, analgesics/antiemetics as needed and IVF for hydration. This is likely alcoholic pancreatitis. Unremarkable TGL and sonogram 2. Transaminitis. Increasing liver function test. Sonogram unremarkable status post cholecystectomy. Tylenol level not elevated. Follow-up hepatitis profile. Repeat CMP pending. Consulted GI to evaluate for CBD stone, ordered MRCP. If dilated CBD will need ERCP. If negative MRCP EGD will then be performed 3. Migraine: h/o Migraine, initially Tension Headache progressed to Migraine. Compazine/Benadryl prn. CT Head w/ no acute findings, images reviewed by me. Resolved 4. HTN: BP 150-160's on arrival, likely compounded by pain complaints, no h/o HTN. Optimize pain control, monitor BP, antihypertensives as needed. Patient has not been taking her BP medications for sometime now. 5. Abnormal urinalysis. Urine culture with contaminants. Discontinue ciprofloxacin. 6. DVT Prophylaxis: SCD/Teds. Discharge Planning Not stable for discharge. Discharge home when cleared by GI. Will need either ERCP or EGD Roderick Downs MD Dec 29, 2016 08:34
[2016-12-29] MEDS: PANTOPRAZOLE SOD 40 MG DELAYED RELEASE TAB PO SCH (08:38)
[2016-12-29] MEDS: SODIUM CHLORIDE 0.9% FLUSH 10 ML FLUSH IV FLUSH SCH ×2 (08:40→20:54)
[2016-12-29] MEDS: DOCUSATE SODIUM 50 MG/SENNA 8.6 MG TAB PO SCH ×2 (08:40→20:54)
[2016-12-29 09:16] LABS: ANION GAP 7 MEQ/L (5-15); AST (GOT) 102 U/L (15-37); BICARBONATE 28.2 MEQ/L (21.0-32.0); BLOOD UREA NITROGEN 6 MG/DL (7-18); CHLORIDE 106 MEQ/L (98-107); GLOMERULAR FILTRATION RATE 119 ML/MIN (>89); POTASSIUM 3.8 MEQ/L (3.5-5.1); SODIUM (NA) 141 MEQ/L (136-145)
[2016-12-29 09:17] LABS: ALT (GPT) 221 U/L (10-53)
[2016-12-29 09:20] LABS: ALKALINE PHOSPHATASE 75 U/L (45-117); TOTAL BILIRUBIN ADULT 0.8 MG/DL (0.2-1.0)
--- NOTE | 2016-12-29 11:42 | HHI.GIFU ---
Subjective Remarks Resting in bed. States she "feels the same"- continues to have epigastric pain with nausea. No fever/chills. MRCP pending. Objective Vitals I&O Vital Signs Date Time Temp Pulse Resp B/P Pulse Ox O2 Delivery O2 Flow Rate FiO2 12/29/16 07:55 96.4 63 16 139/80 100 12/29/16 04:00 96.6 61 17 126/58 99 12/29/16 00:00 97.0 61 16 112/77 98 12/28/16 19:45 98.8 69 16 145/89 98 12/28/16 15:55 98.1 59 18 140/86 98 12/28/16 11:55 96.7 69 18 142/96 98 I/O 12/28/16 12/28/16 12/28/16 12/29/16 12/29/16 12/29/16 07:00 15:00 23:00 07:00 15:00 23:00 Intake Total 1379 ml 960 ml 480 ml 260 ml Balance 1379 ml 960 ml 480 ml 260 ml Intake Oral 248 ml 960 ml 480 ml 0 ml IV Total 1131 ml 260 ml # Voids 2 2 2 2 # Bowel Movements 0 0 0 0 Laboratory Laboratory Tests Test 12/29/16 07:39 Sodium Level 141 Potassium Level 3.8 Chloride Level 106 Carbon Dioxide Level 28.2 Anion Gap 7 Blood Urea Nitrogen 6 Creatinine 0.65 Estimat Glomerular Filtration 119 Rate Random Glucose 85 Calcium Level 9.0 Magnesium Level 2.0 Total Bilirubin 0.8 Aspartate Amino Transf 102 (AST/SGOT) Alanine Aminotransferase 221 (ALT/SGPT) Alkaline Phosphatase 75 Total Protein 6.7 Albumin 3.4 Lipase 250 Date/Time Procedure Status Source Growth 12/26/16 21:30 Urine Culture - Final Complete Urine Random Urine 50-100,000 CFU/ML MIXED GRAM POSITIVE... Imaging Last Impressions Pancreas Ultrasound 12/27/16 0000 Signed Impressions: Service Date/Time: Tuesday, December 27, 2016 21:06 - CONCLUSION: 1. No dilation of the common bile duct. 2. No focal lesions in liver. 3. Pancreas is not well-seen. Misael Webster MD Head CT 12/26/162106 Signed Impressions: Service Date/Time: Monday, December 26, 2016 22:33 - CONCLUSION: Normal examination. Dhaval Blair MD Chest X-Ray 12/26/162106 Signed Impressions: Service Date/Time: Monday, December 26, 2016 21:19 - CONCLUSION: No acute disease. Dhaval Blair MD Physical Exam HEENT: Normocephalic; atraumatic; no jaundice. CHEST: CTA CARDIAC: RRR ABDOMEN: Soft, nondistended, moderate epigastric tenderness; no hepatosplenomegaly; bowel sounds are present in all four quadrants. EXTREMITIES: No clubbing, cyanosis, or edema. SKIN: Normal; no rash; no jaundice. 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 Assessment and Plan Plan ASSESSMENT: - Abdominal pain with elevated lipase and LFT's. Started having epigastric discomfort/bloating Tuesday, developed severe epigastric pain radiating to chest Tuesday after eating out at [employer] [place]. Of note, she did not have shellfish. Pancreatic ultrasound [place] (12/27/16) and this revealed no dilation of the common bile duct. The common bile duct was 5 mm. No focal lesions in the liver. Pancreas is not well seen. On admission her LFTs were total bilirubin 0.5, AST 45, 40, alkaline phosphatase 55. These increased on 12/28 with total bilirubin 1.0, AST 264, ALT 284, alkaline phosphatase 71. Hepatitis profile is pending. No prior history of pancreatitis. S/P cholecystectomy for symptomatic cholelithiasis. Denies new medications other than starting Beet Powder for hx of elevated b/p 2 months ago. No family history of pancreatitis. Rare alcohol use- did have one drink Tuesday night, but usually does not drink. Remote hx of PUD. Lfts trending down, Lipase normalized. MRCP pending. If she has signs of biliary obstruction/stone in common bile duct, she will need ERCP. If this is negative and symptoms persist, consider EGD to rule out duodenal ulcer. PPI. NPO. - Elevated LFTs. Hepatitis panel pending. MRCP pending. Today's labs T. Bili 0.8, AST 102, ALT 221, Alk Phosph 75. PLAN: - NPO for MRCP - Await MRCP - MRCP - PPI - Await hepatitis profile - If signs of biliary obstruction or stone on MRCP, then will need ERCP - If MRCP (-) and symptoms persist, consider EGD to r/o duodenal ulcer - Supportive care - Further recommendations to follow based on results of above - Pt seen and examined by Dr. Davis and this note is written on his behalf Shanel Ivory Dec 29, 2016 11:42
--- NOTE | 2016-12-29 13:02 | RADRPT ---
EXAM DATE/TIME: 12/29/2016 11:40 [facility] COMPARISON: US ABDOMEN - PANCREAS, December 27, 2016, 21:06. INDICATIONS : Elevated LFTs with abdominal pain. MEDICAL HISTORY : Hypertension. SURGICAL HISTORY : Cholecystectomy. ENCOUNTER: Subsequent ACUITY: 3 day PAIN SCORE: 4/10 LOCATION: upper quadrant abdomen TECHNIQUE: Multiplanar, multisequence magnetic resonance imaging of the abdomen was performed. High-resolution 3D dataset was utilized to reconstruct maximum-intensity projection (MIP) images. FINDINGS: INTRAHEPATIC BILE DUCTS: Within normal limits. No significant anatomical variant is present. EXTRAHEPATIC BILE DUCTS: The common bile duct measures 4 mm No stone or filling defect is identified. GALLBLADDER: Surgically removed LIVER: Normal size and signal intensity. No concerning liver lesion is identified on this non-contrast exam. PANCREAS: The main pancreatic duct is normal in size. There is no significant anatomical variant. Signal inte nsity is within normal limits. No mass is visualized on this non-contrast exam. OTHER: The remaining visualized structures demonstrate no acute abnormality on this non-contrast exam. CONCLUSION: Unremarkable MRCP. Tyler Chopra MD on December 29, 2016 at 12:57 Board Certified Radiologist. This report was verified electronically.
[2016-12-29 15:30] VITALS: BP 124/70; PULSE 89; RESP 16; TEMP 98.4; O2SAT 98
[2016-12-29 20:00] VITALS: BP 121/82; PULSE 90; RESP 16; TEMP 97.6; O2SAT 96
[2016-12-30] VITALS: BP 112/76; PULSE 82; RESP 16; TEMP 97.7; O2SAT 98
[2016-12-30] MEDS ORDERED: LACTATED RINGER'S 1000 ML IV PRN (00:45)
[2016-12-30] MEDS ORDERED: METOPROLOL TARTRATE 25 MG TAB PO PRN (00:45)
[2016-12-30] MEDS ORDERED: INSULIN HUMAN REGULAR 1,000 UNITS/10 ML VIAL SQ PRN (00:45)
[2016-12-30] MEDS ORDERED: POVIDONE IODINE 5% (ANTISEPSIS KIT) 4 APPLICATIONS EACH NARE PRN (00:45)
[2016-12-30] MEDS ORDERED: CHLORHEXIDINE GLUCONATE 2 % 1 PACK (2 CLOTHS) TOPICAL PRN (00:45)
[2016-12-30] MEDS ORDERED: SODIUM CHLORID 0.9% 500 ML IV PRN (00:45)
[2016-12-30 07:39] LABS: INDIRECT BILIRUBIN 0.4 MG/DL (0.0-0.8); TOTAL BILIRUBIN ADULT 0.5 MG/DL (0.2-1.0)
[2016-12-30 07:53] VITALS: BP 130/67; PULSE 72; RESP 17; TEMP 97.3; O2SAT 100
[2016-12-30 08:50] VITALS: BP 130/67; PULSE 72; RESP 17; TEMP 97.3; O2SAT 100
[2016-12-30] MEDS ORDERED: SIMETHICONE SUSP DROPS 40 MG/0.6 ML 30 ML BTL ONE (09:10)
[2016-12-30] MEDS ORDERED: PROPOFOL 200 MG/20 ML AMP IV PUSH ONE (09:16)
--- NOTE | 2016-12-30 09:23 | HHI.GIFU ---
Subjective Remarks Immediate postop note: EGD with biopsy Indication: abdominal pain Meds: MAC Findings: Esophagus: distal inflammation with early stricture formation Stomach: small hiatal hernia, mild gastritis Biopsy taken Duodenum: normal Objective Vitals I&O Vital Signs Date Time Temp Pulse Resp B/P Pulse Ox O2 Delivery O2 Flow Rate FiO2 12/30/16 08:50 97.3 72 17 130/67 100 12/30/16 07:53 97.3 72 17 130/67 100 12/30/16 00:00 97.7 82 16 112/76 98 12/29/16 20:00 97.6 90 16 121/82 96 12/29/16 20:00 96 Room Air 12/29/16 15:30 98.4 89 16 124/70 98 I/O 12/29/16 12/29/16 12/29/16 12/30/16 12/30/16 12/30/16 07:00 15:00 23:00 07:00 15:00 23:00 Intake Total 260 ml 720 ml 480 ml 0 ml Balance 260 ml 720 ml 480 ml 0 ml Intake Oral 0 ml 720 ml 480 ml 0 ml IV Total 260 ml # Voids 2 3 2 2 # Bowel Movements 0 0 0 0 Laboratory Laboratory Tests Test 12/30/16 05:38 Total Bilirubin 0.5 Direct Bilirubin 0.1 Indirect Bilirubin 0.4 Aspartate Amino Transf 46 (AST/SGOT) Alanine Aminotransferase 159 (ALT/SGPT) Alkaline Phosphatase 70 Total Protein 6.6 Albumin 3.2 Date/Time Procedure Status Source Growth 12/26/16 21:30 Urine Culture - Final Complete Urine Random Urine 50-100,000 CFU/ML MIXED GRAM POSITIVE... Physical Exam HEENT: Normocephalic; atraumatic; no jaundice. CHEST: CTA CARDIAC: RRR ABDOMEN: Soft, nondistended, moderate epigastric tenderness; no hepatosplenomegaly; bowel sounds are present in all four quadrants. EXTREMITIES: No clubbing, cyanosis, or edema. SKIN: Normal; no rash; no jaundice. DOCKMASTER: No focal deficits; alert and oriented times three. Assessment and Plan Plan ASSESSMENT: - Abdominal pain with elevated lipase and LFT's. Started having epigastric discomfort/bloating Tuesday, developed severe epigastric pain radiating to chest Tuesday night after eating out at [address] Of note, she did not have shellfish. Pancreatic ultrasound [place] (12/27/16) and this revealed no dilation of the common bile duct. The common bile duct was 5 mm. No focal lesions in the liver. Pancreas is not well seen. On admission her LFTs were total bilirubin 0.5, AST 45, 40, alkaline phosphatase 55. These increased on 12/28 with total bilirubin 1.0, AST 264, ALT 284, alkaline phosphatase 71. Hepatitis profile is pending. No prior history of pancreatitis. S/P cholecystectomy for symptomatic cholelithiasis. Denies new medications other than starting Beet Powder for hx of elevated b/p 2 months ago. No family history of pancreatitis. Rare alcohol use- did have one drink Tuesday night, but usually does not drink. Remote hx of PUD. Lfts trending down, Lipase normalized. MRCP pending. If she has signs of biliary obstruction/stone in common bile duct, she will need ERCP. If this is negative and symptoms persist, consider EGD to rule out duodenal ulcer. PPI. NPO. - Elevated LFTs. Hepatitis panel pending. MRCP pending. Today's labs T. Bili 0.8, AST 102, ALT 221, Alk Phosph 75. - EGD on 12/30 Gerd with early distal stricture. Small hiatal hernia, mild gastritis. Biopsy taken for H Pylori No ulcer seen PLAN: - PPI - Possible discharge today. - Regular diet. Follow up in [facility] office in 2-3 weeks Hamlet Davis MD Dec 30, 2016 09:23
--- NOTE | 2016-12-30 10:27 | HHI.PR ---
Subjective Remarks resting comfortably with no distress. abdominal pain is better. no nausea or vomiting. wants to go home today. Objective Vitals Vital Signs Date Time Temp Pulse Resp B/P Pulse Ox O2 Delivery O2 Flow Rate FiO2 12/30/16 09:38 75 18 138/85 95 12/30/16 09:28 85 18 142/82 95 12/30/16 09:18 97.9 90 18 144/86 96 12/30/16 08:50 97.3 72 17 130/67 100 12/30/16 07:53 97.3 72 17 130/67 100 12/30/16 00:00 97.7 82 16 112/76 98 12/29/16 20:00 97.6 90 16 121/82 96 12/29/16 20:00 96 Room Air 12/29/16 15:30 98.4 89 16 124/70 98 I/O 12/29/16 12/29/16 12/29/16 12/30/16 12/30/16 12/30/16 07:00 15:00 23:00 07:00 15:00 23:00 Intake Total 260 ml 720 ml 480 ml 0 ml 100 ml Balance 260 ml 720 ml 480 ml 0 ml 100 ml Intake Oral 0 ml 720 ml 480 ml 0 ml IV Total 260 ml Other 100 ml # Voids 2 3 2 2 # Bowel Movements 0 0 0 0 Result Diagram: 12/28/16 0314 12/29/16 0739 Imaging Last Impressions Cholangiopancreatography MRI 12/29/16 0000 Signed Impressions: Service Date/Time: Thursday, December 29, 2016 11:40 - CONCLUSION: Unremarkable MRCP. Tyler Chopra MD Pancreas Ultrasound 12/27/16 0000 Signed Impressions: Service Date/Time: Tuesday, December 27, 2016 21:06 - CONCLUSION: 1. No dilation of the common bile duct. 2. No focal lesions in liver. 3. Pancreas is not well-seen. Misael Webster MD Head CT 12/26/162106 Signed Impressions: Service Date/Time: Monday, December 26, 2016 22:33 - CONCLUSION: Normal examination. Dhaval Blair MD Chest X-Ray 12/26/162106 Signed Impressions: Service Date/Time: Monday, December 26, 2016 21:19 - CONCLUSION: No acute disease. Dhaval Blair MD Objective Remarks GENERAL: This is a well-nourished, well-developed patient, in no apparent distress. CARDIOVASCULAR: Regular rate and regular rhythm without murmurs, gallops, or rubs. RESPIRATORY: Clear to auscultation. Breath sounds equal bilaterally. No wheezes , rales, or rhonchi. GASTROINTESTINAL: Abdomen soft, mild generalized tenderness, nondistended. Normal, active bowel sounds MUSCULOSKELETAL: Extremities without clubbing, cyanosis, or edema. NEURO: Alert & Oriented x4 to person, place, time, situation. Moves all ext x4 Procedures EGD Medications and IVs Current Medications Morphine Sulfate (Morphine Inj) 4 mg ONCE ONCE IV PUSH Last administered on 21:41; Start 12/26/16 at 21:30; Stop 12/26/16 at 21:31; Status DC Ondansetron HCl 4 mg 4 mg ONCE ONCE IV PUSH Last administered on 12/26/16 21: 41; Start 12/26/16 at 21:30; Stop 12/26/16 at 21:31; Status DC Sodium Chloride (NS 1000 ml Inj) 1,000 ml @ 1,000 mls/hr Q1H IV Last administered on 12/26/16 23:00; Start 12/26/16 at 22:09; Stop 12/26/16 at 23:08; Status DC Prochlorperazine Edisylate (Compazine Inj) 10 mg Q4H PRN IV PUSH MIGRAINE; Start 12/26/16 at 23:15 Diphenhydramine HCl (Benadryl Inj) 25 mg Q4H PRN IV PUSH MIGRAINE; Start at 23:15 Pantoprazole Sodium 40 mg 40 mg Q12H IV PUSH Last administered on 12/26/16 23: 38; Start 12/27/16 at 00:00; Stop 12/27/16 at 11:07; Status DC Sodium Chloride (NS 1000 ml Inj) 1,000 ml @ 100 mls/hr Q10H IV Last administered on 12/27/16 09:59; Start 12/26/16 at 23:05; Stop 12/27/16 at 11:06; Status DC Sodium Chloride (NS Flush) 2 ml UNSCH PRN IV FLUSH FLUSH AFTER USING IV ACCESS ; Start 12/26/16 at 23:15 Sodium Chloride (NS Flush) 2 ml BID IV FLUSH Last administered on 12/29/16 20: 54; Start 12/27/16 at 09:00 Ondansetron HCl (Zofran Inj) 4 mg Q6H PRN IVP NAUSEA OR VOMITING Last administered on 12/27/16 00:37; Start 12/26/16 at 23:15 Acetaminophen (Tylenol) 650 mg Q6H PRN PO FEVER/PAIN SCALE 1 TO 2; Start at 23:15 Acetaminophen/ Hydrocodone Bitart ([place] 5-325 Mg) 1 tab Q4H PRN PO PAIN SCALE 3 TO 5 Last administered on 12/29/16 17:05; Start 12/26/16 at 23:15 Morphine Sulfate (Morphine Inj) 2 mg Q3H PRN IV Pain 6-10 Last administered on 12/27/16 16:52; Start 12/26/16 at 23:15 Senna/Docusate Sodium (Lula-Colace) 1 tab BID PO Last administered on 12/29/16 20:54; Start 12/27/16 at 09:00 Magnesium Hydroxide (Milk Of Magnesia Liq) 30 ml Q12H PRN PO MILD - MODERATE CONSTIPATION; Start 12/26/16 at 23:15 Sennosides (Senokot) 17.2 mg Q12H PRN PO MODERATE - SEVERE CONSTIPATION; Start 12/26/16 at 23:15 Bisacodyl (Dulcolax Supp) 10 mg DAILY PRN RECTAL SEVERE CONSITIPATION; Start at 23:15 Lactulose 30 ml 30 ml DAILY PRN PO SEVERE CONSITIPATION; Start 12/26/16 at 23:15 Ciprofloxacin/ Dextrose 200 ml @ 200 mls/hr DAILY@01,13 IV Last administered on 12/27/16 02:12; Start 12/27/16 at 01:25; Stop 12/27/16 at 11:26; Status DC Potassium Chloride/Sodium Chloride (NS + KCl 20 Meq Inj) 1,000 ml @ 100 mls/hr Q10H IV Last administered on 12/29/16 20:59; Start 12/27/16 at 11:15 Pantoprazole Sodium (Protonix) 40 mg DAILY PO Last administered on 12/29/16 08: 38; Start 12/27/16 at 11:15 Potassium Chloride (KCl) 20 meq ONCE ONCE PO Last administered on 12/27/16 12: 46; Start 12/27/16 at 11:15; Stop 12/27/16 at 11:16; Status DC Enalaprilat (Vasotec Inj) 1.25 mg Q6H PRN IV SBP> OR = 180, DBP> OR = 100; Start 12/27/16 at 11:15 Clonidine (Catapres) 0.1 mg Q6H PRN PO SBP> OR = 180, DBP> OR = 100; Start 12/27 at 11:15 Ciprofloxacin 250 mg 250 mg Q12HR PO Last administered on 12/28/16 08:19; Start 12/27/16 at 12:00; Stop 12/28/16 at 10:48; Status DC Lactated Ringer's 1,000 ml @ 30 mls/hr Q24H PRN IV SEE LABEL COMMENTS; Start at 00:45; Stop 01/02/17 at 00:44 Sodium Chloride (NS 500 ml Inj) 500 ml @ 30 mls/hr [id number] PRN IV SEE LABEL COMMENTS; Start 12/30/16 at 00:45; Stop 01/02/17 at 00:44 Metoprolol Tartrate (Lopressor) 25 mg PIVOT MAKER PRN PO SEE LABEL COMMENTS; Start 12/30/16 at 00:45; Stop 01/02/17 at 00:44 Povidone Iodine (Betadine 5% Antisepsis Kit) 1 applic PIVOT MAKER PRN EACH NARE SEE LABEL COMMENTS; Start 12/30/16 at 00:45; Stop 01/02/17 at 00:44 Chlorhexidine Gluconate (Chlorhexidine 2% Cloth) 3 pack PIVOT MAKER PRN TOPICAL SEE LABEL COMMENTS; Start 12/30/16 at 00:45; Stop 01/02/17 at 00:44 Insulin Human Regular (NovoLIN R INJ) See Protocol Table ... PIVOT MAKER PRN SQ SEE PROTOCOL TABLE; Start 12/30/16 at 00:45; Stop 01/02/17 at 00:44 Simethicone (Simethicone Liq (Drops)) 2,000 mg STK-MED ONCE .XX Last administered on 7/6/17at 09:10; Start 12/30/16 at 09:10; Stop 12/30/16 at 09:11; Status DC Propofol (Diprivan 200 Mg/20 ml Inj) 150 mg STK-MED ONCE IV PUSH ; Start at 09:16; Stop 12/30/16 at 09:17; Status DC A/P Assessment and Plan A/P 1. Pancreatitis: improved. s/p EGD with Gerd with early distal stricture. Small hiatal hernia, mild gastritis. Biopsy taken for H Pylori No ulcer seen f/u with GI office. 2. Transaminitis. Increasing liver function test. Sonogram unremarkable status post cholecystectomy. Tylenol level not elevated. LFT's trending down- hepatitis panel negative. 3. Migraine: Resolved 4. HTN: Bp overall better- Patient has not been taking her BP medications for sometime now.f/u as outpatient. 5. Abnormal urinalysis. Urine culture with contaminants. 6. DVT Prophylaxis: SCD/Teds. Discharge Planning dc home with f/u; pcp and GI. see med list. d/w the patient. Osbaldo Mccoy MD Dec 30, 2016 10:27
--- NOTE | 2016-12-30 10:28 | HHI.DS ---
Discharge Summary Admission Date Dec 26, 2016 at 22:45 Discharge Date: Dec 30, 2016 Admitting Diagnosis acute pancreatitis (1) Pancreatitis ICD Code: K85.90 Diagnosis: Principal (2) Migraine ICD Code: G43.909 Diagnosis: Secondary (3) HTN (hypertension) ICD Code: I10 Diagnosis: Secondary Procedures EGD Brief History - From Admission This is a 46-year-old female with a PMH of Migraine who was brought to the ER by EMS secondary to complaints of severe headache and epigastric pain starting earlier tonight. Pt states she was at [employer] having dinner w/ , got up to go to bathroom and had acute onset of headache w/ epigastric/chest pain at which time EMS was called. Denies fever, chills, cough or SOB. On arrival, BP 159/84, HR 81, O2 sat 96% on RA, Afebrile. CBC essentially unremarkable except for elevated neutrophil count. Chemistry unremarkable. CPK 206. Troponin negative. Lipase 1498. INR 1.0. UA with small LE, mild bacteriuria. CXR with no acute findings. CT Head negative. Patient currently with +photophobia, intractable migraine which she reports is typical of her previous episodes. S/p analgesics/antiemetics w/ mild improvement. CBC/BMP: 12/28/16 0314 12/29/16 0739 Significant Findings Laboratory Tests Test 12/28/16 12/29/16 12/30/16 03:14 07:39 05:38 Chloride Level 110 MEQ/L (98-107) Random Glucose 64 MG/DL (74-106) Calcium Level 8.4 MG/DL (8.5-10.1) Aspartate Amino Transf 264 U/L (15-37) 102 U/L (15-37) 46 U/L (15-37) (AST/SGOT) Alanine Aminotransferase 284 U/L (10-53) 221 U/L (10-53) 159 U/L (10-53) (ALT/SGPT) Albumin 3.1 GM/DL 3.2 GM/DL (3.4-5.0) (3.4-5.0) Lipase 2075 U/L (73-393) Acetaminophen Level 3.1 MCG/ML (10.0-30.0) Blood Urea Nitrogen 6 MG/DL (7-18) Imaging Last Impressions Cholangiopancreatography MRI 12/29/16 0000 Signed Impressions: Service Date/Time: Thursday, December 29, 2016 11:40 - CONCLUSION: Unremarkable MRCP. Tyler Chopra MD Pancreas Ultrasound 12/27/16 0000 Signed Impressions: Service Date/Time: Tuesday, December 27, 2016 21:06 - CONCLUSION: 1. No dilation of the common bile duct. 2. No focal lesions in liver. 3. Pancreas is not well-seen. Misael Webster MD Head CT 12/26/162106 Signed Impressions: Service Date/Time: Monday, December 26, 2016 22:33 - CONCLUSION: Normal examination. Dhaval Blair MD Chest X-Ray 12/26/162106 Signed Impressions: Service Date/Time: Monday, December 26, 2016 21:19 - CONCLUSION: No acute disease. Dhaval Blair MD PE at Discharge GENERAL: This is a well-nourished, well-developed patient, in no apparent distress. CARDIOVASCULAR: Regular rate and regular rhythm without murmurs, gallops, or rubs. RESPIRATORY: Clear to auscultation. Breath sounds equal bilaterally. No wheezes , rales, or rhonchi. GASTROINTESTINAL: Abdomen soft, mild generalized tenderness, nondistended. Normal, active bowel sounds MUSCULOSKELETAL: Extremities without clubbing, cyanosis, or edema. NEURO: Alert & Oriented x4 to person, place, time, situation. Moves all ext x4 Hospital Course 1. Pancreatitis: improved. s/p EGD with Gerd with early distal stricture. Small hiatal hernia, mild gastritis. Biopsy taken for H Pylori No ulcer seen f/u with GI office. 2. Transaminitis. Increasing liver function test. Sonogram unremarkable status post cholecystectomy. Tylenol level not elevated. LFT's trending down- hepatitis panel negative. 3. Migraine: Resolved 4. HTN: Bp overall better- Patient has not been taking her BP medications for sometime now.f/u as outpatient. 5. Abnormal urinalysis. Urine culture with contaminants. 6. DVT Prophylaxis: SCD/Teds. Pt Condition on Discharge: Good Discharge Disposition: Discharge Home Discharge Time: <= 30 minutes Discharge Instructions DIET: Follow Instructions for: Heart Healthy Diet Activities you can perform: Regular-No Restrictions Follow up Referrals: Gastroenterology PCP Follow-up - 1 Week New Medications: Hydrocodone-Acetaminophen (Hydrocodone-Acetaminophen) 5-325 mg Tab 1 TAB PO Q6HR PRN pain #28 TAB Pantoprazole (Pantoprazole) 40 Mg Tab 40 MG PO DAILY Manage Heartburn #30 TAB Sennosides-Docusate Sodium (Senna Plus 8.6-50 mg) 1 Tab Tab 1 TAB PO BID Prevent Constipation #60 TAB Continued Medications: ([blood press]) 1 TAB PO DAILY Osbaldo Mccoy MD Dec 30, 2016 10:28
[2016-12-30 10:48] VITALS: BP 139/81; PULSE 64; RESP 16; TEMP 97.1; O2SAT 99
--- NOTE | 2016-12-30 20:07 | MR ---
cc: JOSE ARMANDO MCCOY MD,HAMLET Arambula MD DATE OF SURGERY 12/30/16 PROCEDURE Esophagogastroduodenoscopy with biopsy. INDICATION Abdominal pain. REFERRING PHYSICIAN Dr. Mccoy PROCEDURE IN DETAIL After informed consent was obtained the patient was placed in the left side down position. She was sedated by the anesthesia service. After adequate sedation was achieved the Pentax video gastroscope was inserted in the oropharynx, advanced through the esophagus, stomach and duodenum, was then slowly withdrawn examining the mucosal surfaces carefully. Retroflex examination was performed in the fundus and cardia. The scope was then straightened and a biopsy was obtained in the gastric antrum. The scope was then slowly withdrawn and the procedure was terminated. She tolerated the procedure well and was returned to the recovery area in good condition. FINDINGS 1. The esophagus showed distal inflammation with early stricture formation. 2. The stomach with a small hiatal hernia and there was mild gastritis. A biopsy was taken from the gastric antrum. 3. The duodenum was normal. IMPRESSION 1. Gastroesophageal reflux disease. 2. Gastritis. 3. Hiatal hernia. RECOMMENDATIONS 1. Continue the proton pump inhibitor. 2. Regular diet. 3. Possible discharge today. 4. Liver enzymes elevated and mild pancreatitis on admission, suggests sphincter of Oddi dysfunction. She should follow up in the [facility] in 2-3 weeks, otherwise, symptomatic medication. Hamlet Davis MD HHS/EO /9:32 AM /7:53 PM
== END 2016-12-30 11:18 | disposition home or self-care (01) | DRG 440 ==
LOC: NEPE 20:58 → NEDA 22:45 → N06A 12-27 00:10
PROVIDERS: ADMIT Internal Medicine; ATTEND Internal Medicine
PROC: 0DB68ZX Excision of Stomach, Via Natural or Artificial Opening Endoscopic, Diagnostic (ICD-10-PCS; principal; 2016-12-30 08:55)
DX: K85.90 Acute pancreatitis without necrosis or infection, unspecified (principal); K22.2 Esophageal obstruction; I10 Essential (primary) hypertension; K21.9 Gastro-esophageal reflux disease without esophagitis; G43.919 Migraine, unspecified, intractable, without status migrainosus; K44.9 Diaphragmatic hernia without obstruction or gangrene; K29.70 Gastritis, unspecified, without bleeding; Z90.49 Acquired absence of other specified parts of digestive tract
CPT/HCPCS: 70450; 71010; 74181; 76377; 76705; 76937; 80048; 80053; 80074; 80076; 80307; 81001; 82550; 82552; 83690; 83735; 84443; 84478; 84484; 84703; 85025; 85610; 85730; 87086; 88305; 88312; 93005; 96374; 96375; C9113; J0744; J2270; J2405; J3480; J7030